=== PATIENT | female | born 1945 | race Caucasian/White ===

== ENCOUNTER 2016-05-08 14:04 | Emergency (ER) | payer MEDICARE ==
[~2016-05-08] VITALS: Ht 167.6 cm; Wt 76.0 kg
[~2016-05-08 14:04] MED LIST: AMIT50TA13; ATOR20TA42; BUTAPOW6; LEVO88TA21; PROP60; TOPI25; TOPI50TA4
[2016-05-08 14:12] VITALS: BP 136/92; PULSE 96; RESP 16; TEMP 97.7; O2SAT 96
[2016-05-08] MEDS ORDERED: AMLO2.5T PO (14:27)
[2016-05-08] MEDS ORDERED: BUTA1CAP PO (14:27)
[2016-05-08] MEDS ORDERED: OMEP20TA PO (14:27)
[2016-05-08] MEDS ORDERED: NORT10CA PO (14:27)
[2016-05-08] MEDS ORDERED: LEVO125T4 PO (14:27)
[2016-05-08] MEDS ORDERED: VALA500T PO (14:27)
--- NOTE | 2016-05-08 15:07 | PD ---
HPI Chief Complaint: Musculoskeletal Complaint Time Seen by Provider: 14:41 Travel History International Travel<30 days: No Contact w/Intl Traveler<30days: No Traveled to known affect area: No History of Present Illness HPI 71-year-old female presents to the emergency room for evaluation of right lower extremity swelling that started last night. Patient denies any trauma or injury to the area. States she elevated it and iced it last night and swelling seemed to improve slightly but today while playing a card game with her friends , the swelling returned. Her friends recommended she go to the emergency room for evaluation. She denies any significant pain other than chronic right knee pain that is no worse than normal. She has not taken anything for her symptoms. Denies redness. Patient denies history of DVT or PE, history of cancer, recent immobilization, recent surgery, or exogenous estrogen use. Denies chest pain or shortness of breath. No history of CHF. PFSH Past Medical History Heart Rhythm Problems: No Cardiac Catheterization: No Cardiovascular Problems: No High Cholesterol: No Congestive Heart Failure: No Cerebrovascular Accident: Yes (CEREBRAL HEMMORHAGE 1996/CRANIECTOMY) Diabetes: No Diminished Hearing: No Hypertension: No Neurologic: Yes (SEVERE HEADACHES 3X WEEK) Myocardial Infarction: No Seizures: Yes (, ) Thyroid Disease: Yes Tetanus Vaccination: > 5 Years Influenza Vaccination: Yes ?: Not Past Surgical History Cholecystectomy: Yes Coronary Artery Bypass Graft: No Hysterectomy: Yes Tonsillectomy: Yes Social History Alcohol Use: Yes (4 martini per week) Tobacco Use: No Substance Use: No Allergies-Medications (Allergen,Severity, Reaction): Coded Allergies: No Known Allergies (Verified , 05/08/16) Reported Meds & Prescriptions Reported Meds & Active Scripts Active Reported Valacyclovir (Valacyclovir HCl) 500 Mg Tab 500 Mg PO DAILY Omeprazole 20 Mg Tab 20 Mg PO DAILY Fioricet (Dtpxcybvro-Rwvzweqaksaib-Yimdlefg) 50-300-40 Mg Cap 1 Cap PO Q4H PRN Amlodipine (Amlodipine Besylate) 2.5 Mg Tab 2.5 Mg PO DAILY Levothyroxine (Levothyroxine Sodium) 125 Mcg Tab 125 Mcg PO DAILY Nortriptyline (Nortriptyline HCl) 10 Mg Cap 5 Mg PO HS Review of Systems Except as stated in HPI: all other systems reviewed are Neg Physical Exam Narrative GENERAL: Well-nourished, well-developed female in no acute distress. Afebrile. SKIN: Warm and dry. No erythema or ecchymosis. HEAD: Normocephalic. EYES: No scleral icterus. No injection or drainage. NECK: Supple, trachea midline. No JVD or lymphadenopathy. EXTREMITY: Negative Lizzeth's sign. Right calf nontender to palpation. No tenderness to palpation of the right lower extremity except at the anterior and posterior knee. Full range of motion of the right lower extremity. 2+ dorsalis pedis pulse. Less than 2 second capillary refill distally. Data Data Last Documented VS Vital Signs Date Time Temp Pulse Resp B/P Pulse Ox O2 Delivery O2 Flow Rate FiO2 05/08/16 14:12 97.7 96 16 136/92 96 Orders Us Leg Venous Doppler (05/08/16 ) MDM Medical Decision Making Medical Screen Exam Complete: Yes Emergency Medical Condition: Yes Medical Record Reviewed: Yes Differential Diagnosis DVT versus CHF versus sprain Narrative Course 71-year-old female presents to the emergency room for evaluation of lower extremity edema that started yesterday without trauma or injury. Denies history of kidney, heart, or liver failure. Denies risk factors for DVT. Denies pain. Physical exam reveals obvious right lower extremity nonpitting edema with 2+ dorsalis pedis pulse. Full range of motion in all joints. No tenderness to palpation. No calf tenderness. Negative Lizzeth's test. No erythema or ecchymosis. Ultrasound is negative for DVT, reveals popliteal cyst. Patient has no palpable obstructing masses and denies abdominal pain or difficulty with bowel or bladder function. She was told to follow up with primary care physician or return for worsening symptoms, especially if edema becomes bilateral. She has an appointment with her orthopedist in 5 days. Encouraged to elevate and apply ice to affected area. She understands and agrees with plan. Diagnosis Primary Impression: Edema of right lower extremity Referrals: Orthopedist Primary Care Physician Patient Instructions: General Instructions, Leg Edema (ED) Additional Instructions: Elevate and apply ice to the affected area for 20 minutes at a time, as needed for swelling. Follow-up with a primary care physician. Return to the emergency room for worsening symptoms. Disposition: 01 DISCHARGE HOME Condition: Stable Lizabeth Bennett May 08, 2016 15:07
--- NOTE | 2016-05-08 16:26 | RADHPO ---
EXAM DATE/TIME: 05/08/2016 15:54 [facility] COMPARISON: No previous studies available for comparison. INDICATIONS : Right leg edema. MEDICAL HISTORY : CVA. Thyroid disease. Seizures. Cerebral hemorrhage. SURGICAL HISTORY : Tonsillectomy. Cholecystectomy. Hysterectomy. Craniectomy. ENCOUNTER: Initial ACUITY: 1 day PAIN SCORE: 5/10 LOCATION: Right leg. TECHNIQUE: Venous ultrasound of the leg was performed from the inguinal ligament to the proximal calf. Real-martha e, color Doppler and spectral tracing, compression and augmentation techniques were used. FINDINGS: There is normal compressibility of the deep venous system from the inguinal region to the proximal ca lf. No echogenic clot is seen in the lumen of the common femoral, femoral, popliteal, and posterior tibial veins. There is a normal response of the venous system to proximal and distal augmentation an d respiration. There is a small oval smooth margin cystic area in the popliteal fossa which measures 1.7 x 0.7 x 1.4 cm without internal or peripheral flow. CONCLUSION: 1. The study is negative for deep venous thrombosis right lower extremity. 2. Small popliteal cyst. Shon Hammond MD on May 08, 2016 at 16:24 Board Certified Radiologist. This report was verified electronically.
== END 2016-05-08 16:48 | disposition home or self-care (01) ==
LOC: PHEFT 14:04
DX: R60.9 Edema, unspecified (principal); M25.561 Pain in right knee; G89.29 Other chronic pain
CPT/HCPCS: 93971

== ENCOUNTER 2016-06-26 10:42 | Emergency (ER) | payer MEDICARE ==
[~2016-06-26] VITALS: Ht 182.9 cm; Wt 73.0 kg
[~2016-06-26 10:42] MED LIST changes: -AMIT50TA13; +AMLO2.5T PO; -ATOR20TA42; +BUTA1CAP PO; -BUTAPOW6; +LEVO125T4 PO; -LEVO88TA21; +NORT10CA PO; +OMEP20TA PO; -PROP60; -TOPI25; -TOPI50TA4; +VALA500T PO
[2016-06-26 10:47] VITALS: BP 143/67; PULSE 81; RESP 18
[2016-06-26] MEDS ORDERED: SODIUM CHLORIDE 0.9% FLUSH 5 ML FLUSH IVF PRN (11:00)
[2016-06-26] MEDS ORDERED: methylPREDNISolone SOD SUCC 125 MG/2 ML VIAL IVP ONE (11:00)
[2016-06-26] MEDS ORDERED: AZITHROMYCIN 250 MG TAB PO ONE (11:00)
--- NOTE | 2016-06-26 11:13 | RADRPT ---
EXAM DATE/TIME: 06/26/2016 11:09 [facility] COMPARISON: No previous studies available for comparison. INDICATIONS : Cough, shortness of breath and fainting. MEDICAL HISTORY : Chronic obstructive pulmonary disease. SURGICAL HISTORY : None. ENCOUNTER: Initial ACUITY: 2 days PAIN SCORE: 0/10 LOCATION: Bilateral chest FINDINGS: A single view of the chest demonstrates the lungs to be symmetrically aerated without evidence of mas s, infiltrate or effusion. The cardiomediastinal contours are unremarkable. Osseous structures are intact. CONCLUSION: Normal examination for a patient of this age. Miguel Ángel Champion MD on June 26, 2016 at 11:11 Board Certified Radiologist. This report was verified electronically.
[2016-06-26] MEDS ORDERED: MELO-1 PO (11:14)
[2016-06-26] MEDS ORDERED: MULTTAB67 PO (11:14)
[2016-06-26] MEDS ORDERED: NORT10SO PO (11:14)
[2016-06-26 11:23] LABS: AUTOMATED NEUTROPHIL # 2.2 TH/MM3 (1.8-7.7); BASOPHIL % 0.5 % (0.0-2.0); EOSINOPHIL # 0.1 TH/MM3 (0-0.4); EOSINOPHIL % 1.8 % (0.0-4.0); HEMATOCRIT 37.2 % (35.0-46.0); HEMO FLAGS DIFF FINAL; LYMPH % 16.1 % (9.0-44.0); LYMPHOCYTE # 0.5 TH/MM3 (1.0-4.8); MEAN CELL VOLUME 97.2 FL (80.0-100.0); MEAN CORPUSCULAR HEMOGLOBIN 32.8 PG (27.0-34.0); MEAN CORPUSCULAR HGB CONC 33.7 % (32.0-36.0); MONO % 8.7 % (0.0-8.0); NEUT % 72.9 % (16.0-70.0); PLATELET COUNT 134 TH/MM3 (150-450); RED BLOOD COUNT 3.82 MIL/MM3 (4.00-5.30); RED CELL DISTRIBUTION WIDTH 14.7 % (11.6-17.2); WHITE BLOOD COUNT 3.1 TH/MM3 (4.0-11.0)
--- NOTE | 2016-06-26 11:23 | PD ---
HPI Chief Complaint: General Weakness Time Seen by Provider: 10:49 Travel History International Travel<30 days: No Contact w/Intl Traveler<30days: No Traveled to known affect area: No History of Present Illness HPI This 71-year-old woman presents to the emergency department sent from an urgent care after syncopal episode. She's been having intermittent bronchitis episodes since March. She has a remote history of tobacco use but quit many years ago. She's been having cough cold symptoms for the past 2-3 days. Cough is productive of thick phlegm. No shortness of breath, no fevers or chills, no headache, no chest pain. She went to urgent care today because of a cough. All there, after coming to the back, she was sitting on the table and she apparently passed out. She is unable to provide any real further details. States she was laying down when it happened. She also states it happened after she walked from the front to the back. She otherwise had been feeling generally well and healthy before the symptoms started to 3 days ago. She feels back to normal now. No other complaints. History Past Medical History Narrative Medical Hypertension Headache Hypothyroidism History of ICH in the past, a couple seizures related to this, and not on medicine now Recurrent bronchitis, has been told in the past she has COPD Menopausal: Yes Social History Alcohol Use: Yes (4 martini per week) Tobacco Use: No Allergies-Medications (Allergen,Severity, Reaction): Coded Allergies: No Known Allergies (Verified , 05/08/16) Reported Meds & Prescriptions Reported Meds & Active Scripts Active Reported Meloxicam 15 Mg Tab 15 Mg PO DAILY Multiple Vitamin 1 Tab 1 Tab PO DAILY Nortriptyline Liq (Nortriptyline HCl) 10 mg/5 ml Soln 5 Mg PO HS Valacyclovir (Valacyclovir HCl) 500 Mg Tab 500 Mg PO DAILY Omeprazole 20 Mg Tab 20 Mg PO DAILY PRN Fioricet (Xjkexhpdlv-Hbclrjrhvqusx-Otruesrk) 50-300-40 Mg Cap 1 Cap PO Q4H PRN Amlodipine (Amlodipine Besylate) 2.5 Mg Tab 2.5 Mg PO DAILY Levothyroxine (Levothyroxine Sodium) 125 Mcg Tab 125 Mcg PO DAILY Review of Systems Except as stated in HPI: all other systems reviewed are Neg Physical Exam Narrative GENERAL: Well-appearing 71-year-old woman, no acute distress. SKIN: Warm and dry. HEAD: Atraumatic. Normocephalic. EYES: Pupils equal and round. No scleral icterus. No injection or drainage. ENT: No nasal bleeding or discharge. Mucous membranes pink and moist. NECK: Trachea midline. No JVD. CARDIOVASCULAR: Regular rate and rhythm. No murmur appreciated. RESPIRATORY: Coarse wheezing in the posterior lung johns. Frequent cough. Good air movement. No respiratory distress. GASTROINTESTINAL: Abdomen soft, non-tender, nondistended. Hepatic and splenic margins not palpable. MUSCULOSKELETAL: No obvious deformities. No clubbing. No cyanosis. No edema. NEUROLOGICAL: Awake and alert. No obvious cranial nerve deficits. Motor grossly within normal limits. Normal speech. PSYCHIATRIC: Appropriate mood and affect; insight and judgment normal. Data Data Last Documented VS Vital Signs Date Time Temp Pulse Resp B/P Pulse Ox O2 Delivery O2 Flow Rate FiO2 06/26/16 10:52 81 18 97 Room Air 06/26/16 10:47 143/67 Orders Electrocardiogram (06/26/16 ) Complete Blood Count With Diff (06/26/16 10:59) Comprehensive Metabolic Panel (06/26/16 10:59) B-Type Natriuretic Peptide (06/26/16 10:59) Troponin I (06/26/16 10:59) Influenzae A/B Antigen (06/26/16 10:59) Iv Access Insert/Monitor (06/26/16 10:59) Ecg Monitoring (06/26/16 10:59) Oximetry (06/26/16 10:59) Oxygen Administration (06/26/16 10:59) Chest, Single Ap (06/26/16 10:59) Sodium Chloride 0.9% Flush (Ns Flush) (06/26/16 11:00) Methylprednisolone So Succ Inj (Solumedr (06/26/16 11:00) Albuterol-Ipratropium Neb (Duoneb Neb) (06/26/16 11:00) Azithromycin (Zithromax) (06/26/16 11:00) Labs Laboratory Tests Test 06/26/16 11:06 White Blood Count 3.1 TH/MM3 Red Blood Count 3.82 MIL/MM3 Hemoglobin 12.5 GM/DL Hematocrit 37.2 % Mean Corpuscular Volume 97.2 FL Mean Corpuscular Hemoglobin 32.8 PG Mean Corpuscular Hemoglobin 33.7 % Concent Red Cell Distribution Width 14.7 % Platelet Count 134 TH/MM3 Mean Platelet Volume 8.6 FL Neutrophils (%) (Auto) 72.9 % Lymphocytes (%) (Auto) 16.1 % Monocytes (%) (Auto) 8.7 % Eosinophils (%) (Auto) 1.8 % Basophils (%) (Auto) 0.5 % Neutrophils # (Auto) 2.2 TH/MM3 Lymphocytes # (Auto) 0.5 TH/MM3 Monocytes # (Auto) 0.3 TH/MM3 Eosinophils # (Auto) 0.1 TH/MM3 Basophils # (Auto) 0.0 TH/MM3 CBC Comment DIFF FINAL Differential Comment Sodium Level 140 MEQ/L Potassium Level 3.5 MEQ/L Chloride Level 108 MEQ/L Carbon Dioxide Level 26.1 MEQ/L Anion Gap 6 MEQ/L Blood Urea Nitrogen 13 MG/DL Creatinine 0.86 MG/DL Estimat Glomerular Filtration 65 ML/MIN Rate Random Glucose 115 MG/DL Calcium Level 7.5 MG/DL Total Bilirubin 0.3 MG/DL Aspartate Amino Transf 24 U/L (AST/SGOT) Alanine Aminotransferase 24 U/L (ALT/SGPT) Alkaline Phosphatase 62 U/L Troponin I LESS THAN 0.02 NG/ML B-Type Natriuretic Peptide 49 PG/ML Total Protein 5.8 GM/DL Albumin 2.9 GM/DL MDM Medical Decision Making Medical Screen Exam Complete: Yes Emergency Medical Condition: Yes Interpretation(s) Review of EKG: Normal sinus rhythm at a rate of 78, left bundle branch block, no definite evidence of acute ischemia. LABS: CBC unremarkable. CMP unremarkable. Troponin negative. BNP normal Chest x-ray negative. Differential Diagnosis Bronchitis, pneumonia, COPD, other Narrative Course Medical decision making 71-year-old woman who presents to the emergency department with appears to be COPD symptoms and bronchitis. She's had recurrent trouble with this. She has obvious wheezing on exam now. We'll treat her for COPD exacerbation and bronchitis. Just less than usual syncopal episode at the office. I'm not sure if this is related to some exertional dyspnea or exhaustion. I don't see any evidence of arrhythmia. We'll check labs and EKG, likely discharge. Diagnosis Primary Impression: Bronchitis Additional Impression: COPD (chronic obstructive pulmonary disease) with acute bronchitis Additional Instructions: Take albuterol 4 times daily. Take prednisone as prescribed. Take azithromycin as prescribed. Use Mucinex DM as needed for cough. Follow up with a primary physician in the next 3-5 days for repeat evaluation. Return to the emergency department for any worsening chest pain, trouble breathing, or any other new or worsening symptoms. Med/Other Pt SpecificInfo: Prescription(s) given Scripts Dextromethorphan-Guaifenesin ER 12 HR (Mucinex DM Maximum Strength)60-1,200 Mg Tab1 Tab PO BID PRN (CHEST CONGESTION AND/OR COUGH) #14 TAB Prov:Mani Richards MD 06/26/16 Prednisone (Deltasone)20 Mg Tab40 Mg PO DAILY 10 Days Prov:Mani Richards MD 06/26/16 Azithromycin 250 Mg Hua472 Mg PO DAILY 4 Days Prov:Mani Richards MD 06/26/16 Albuterol 18 GM Inh (Ventolin Hfa 18 GM Inh)90 Mcg/Act Aer2 Puff INH Q4-6H PRN ( SHORTNESS OF BREATH) #1 INHALER Prov:Mani Richards MD 06/26/16 Disposition: 01 DISCHARGE HOME Condition: Stable Mani Richards MD Jun 26, 2016 11:23
[2016-06-26] MEDS: RESP: ALBUTEROL 2.5 MG/IPRATROPIUM 0.5 MG NEB (SCH) INH ×2 (11:40→11:41)
[2016-06-26 12:35] LABS: ALKALINE PHOSPHATASE 62 U/L (45-117); ALT (GPT) 24 U/L (10-53); ANION GAP 6 MEQ/L (5-15); AST (GOT) 24 U/L (15-37); BICARBONATE 26.1 MEQ/L (21.0-32.0); BLOOD UREA NITROGEN 13 MG/DL (7-18); CHLORIDE 108 MEQ/L (98-107); GLOMERULAR FILTRATION RATE 65 ML/MIN (>89); POTASSIUM 3.5 MEQ/L (3.5-5.1); SODIUM (NA) 140 MEQ/L (136-145); TOTAL BILIRUBIN ADULT 0.3 MG/DL (0.2-1.0)
[2016-06-26] MEDS ORDERED: PRED-503 PO (12:46)
[2016-06-26] MEDS ORDERED: VENTAER INH (12:46)
[2016-06-26] MEDS ORDERED: AZIT250T3 PO (12:46)
[2016-06-26] MEDS ORDERED: DEXT1TAB18 PO (12:46)
[2016-06-26] MEDS ORDERED: CODE1SUS PO (12:57)
[2016-06-26] MEDS ORDERED: GUAISYP4 PO (12:58)
--- NOTE | 2016-06-26 13:52 | EKG ---
Date Performed: 06/26/2016 Time Performed: 09:51:30 PTAGE: 71 years EKG: Sinus rhythm LEFT BUNDLE BRANCH BLOCK ABNORMAL ECG Compared to prior electrocardiogram,Left bundle branch block i s present. PREVIOUS TRACING : 08/28/2006 20.18 DOCTOR: Hussein Verma Interpretating Date/Time 06/26/2016 13:52:00
== END 2016-06-26 13:37 | disposition home or self-care (01) ==
LOC: NEPA 10:42
DX: J20.9 Acute bronchitis, unspecified (principal); J44.0 Chronic obstructive pulmonary disease with (acute) lower respiratory infection; R06.02 Shortness of breath; I10 Essential (primary) hypertension; E03.9 Hypothyroidism, unspecified; I44.7 Left bundle-branch block, unspecified; R94.31 Abnormal electrocardiogram [ECG] [EKG]
CPT/HCPCS: 71010; 80053; 83880; 84484; 85025; 87804; 93005; 94640; 94664; 96374; 99284; J2930

== ENCOUNTER → 2016-09-17 | Day surgery (SDC) | payer MEDICARE ==
[~2016-09-17] MED LIST changes: +AZIT250T3 PO; +BUPIVACAINE/EPINEPHRINE 0.5% PF 30 ML VIAL ONE; +DEXT1TAB18 PO; +GUAISYP4 PO; +KETOROLAC TROMETHAMINE 30 MG/ML (IVP) VIAL IV PUSH ONE; +LACTATED RINGER'S 1000 ML INJ 1,000 ML ONE; +MELO-1 PO; +MIDAZOLAM HCL 2 MG/2 ML VIAL ONE; +MULTTAB67 PO; -NORT10CA PO; +NORT10SO PO; +ONDANSETRON HCL 4 MG/2 ML VIAL IV PUSH ONE; +PRED-503 PO; +PROPOFOL 100 MG/10 ML INJ IV ONE; +VENTAER INH; +ceFAZolin INJ 1,000 MG VIAL ONE
--- NOTE | 2016-09-17 16:10 | TN ---
cc: ESTHER MACKAY DATE OF SURGERY 09/17/16 PREOPERATIVE DIAGNOSIS Internal derangement of the right knee. POSTOPERATIVE DIAGNOSIS 1. Complex bucket handle tear, posterior medial meniscus. 2. Osteoarthritis, right knee. PROCEDURE 1. Arthroscopy of the right knee. 2. Arthroscopic medial meniscectomy. 3. Minor abrasion chondroplasty. SURGEON Esther Mackay ANESTHESIA General. ESTIMATED BLOOD LOSS Minimal. INDICATION This is a 71-year-old female with catching, locking and mechanical the medial aspect of her right knee. Studies do show some element of arthritis but MRI scan shows evidence of a complex degenerative medial meniscus tear. She presents for surgical treatment. PROCEDURE IN DETAIL The patient brought to the operating room, anesthetized in supine position. The right leg was scrubbed with alcohol, followed by Hibiclens, followed Chloraprep and draped sterilely. Antibiotics were given within a one hour time window and a time-out was done. Inflow was established anterior and laterally. The suprapatellar pouch was unremarkable. Grade 1 changes of the posterior patellar surface were noted. There were no loose bodies. The medial compartment showed kissing grade 4 changes of the medial tibial plateau and medial femoral condyle. There was a detached bucket handle tear that had flipped back toward the notch. The anterior portion of the meniscus was normal. The ACL had a normal foot print. The lateral compartment showed grade 1 and 2 change of the tibia and femur and a small posterior degenerative tear which did not appear to be unstable. A spinal needle was introduced along the medial joint line. Straight and angled punches were used to take the medial meniscus back to stable rim. The meniscus was debrided from approximately the 4 o'clock position to the posterior horn. A minor abrasion chondroplasty was performed. The wound was irrigated copiously. The fragments floated free from the joint. The wound was anesthetized, closed with Steri-Strips and Benzoin. Local anesthesia was utilized. A sterile dressing was applied. The patient awakened and taken to recovery in satisfactory condition. MD BG Rubio/LOLITA /3:42 PM /3:57 PM
== END | disposition home or self-care (01) ==
LOC: ESDC 13:34
PROVIDERS: ATTEND Orthopaedic Surgery Orthopaedic Surgery of the Spine
DX: S83.211A Bucket-handle tear of medial meniscus, current injury, right knee, initial encounter (principal); M17.11 Unilateral primary osteoarthritis, right knee
CPT/HCPCS: 01400; 29881; J0690; J1885; J2250; J2405; J3010; J7120

== ENCOUNTER 2016-10-17 17:11 | Emergency (ER) | payer MEDICARE ==
[~2016-10-17] VITALS: Ht 167.6 cm; Wt 75.0 kg
[~2016-10-17 17:11] MED LIST changes: -BUPIVACAINE/EPINEPHRINE 0.5% PF 30 ML VIAL ONE; -KETOROLAC TROMETHAMINE 30 MG/ML (IVP) VIAL IV PUSH ONE; -LACTATED RINGER'S 1000 ML INJ 1,000 ML ONE; -MIDAZOLAM HCL 2 MG/2 ML VIAL ONE; -ONDANSETRON HCL 4 MG/2 ML VIAL IV PUSH ONE; -PROPOFOL 100 MG/10 ML INJ IV ONE; -ceFAZolin INJ 1,000 MG VIAL ONE
[2016-10-17 17:14] VITALS: BP 162/89; PULSE 81; RESP 17; TEMP 97.8; O2SAT 96
--- NOTE | 2016-10-17 17:29 | PD ---
HPI . left foot splinter Chief Complaint: Foreign Body Time Seen by Provider: 17:20 Travel History International Travel<30 days: No Contact w/Intl Traveler<30days: No Traveled to known affect area: No History of Present Illness HPI 71 yr old female here with c/o splinter to her left foot bottom. It just happened not too long ago. She is up to date on tetanus. It hurts to walk. No other issues. PFSH Past Medical History Heart Rhythm Problems: No Cardiac Catheterization: No Cardiovascular Problems: Yes (CHOLESTEROL, HTN) High Cholesterol: No Congestive Heart Failure: No Cerebrovascular Accident: Yes Diminished Hearing: No GERD: Yes Hypertension: Yes Neurologic: Yes (SEVERE HEADACHES 3X WEEK) Myocardial Infarction: No Seizures: Yes (, ) Thyroid Disease: Yes Tetanus Vaccination: < 5 Years Influenza Vaccination: Yes Menopausal: Yes Past Surgical History Cholecystectomy: Yes Coronary Artery Bypass Graft: No Hysterectomy: Yes Tonsillectomy: Yes Social History Alcohol Use: Yes (4 martini per week) Tobacco Use: No Substance Use: No Allergies-Medications (Allergen,Severity, Reaction): Coded Allergies: HMG-CoA Reductase Inhibitors (Verified Allergy, Intermediate, ITCHING, 10/17) Reported Meds & Prescriptions Reported Meds & Active Scripts Active Reported Meloxicam 15 Mg Tab 15 Mg PO DAILY Multiple Vitamin 1 Tab 1 Tab PO DAILY Nortriptyline Liq (Nortriptyline HCl) 10 mg/5 ml Soln 5 Mg PO HS Valacyclovir (Valacyclovir HCl) 500 Mg Tab 500 Mg PO DAILY Omeprazole 20 Mg Tab 20 Mg PO DAILY PRN Fioricet (Ivlujxxrlv-Zhsnaqdpciuia-Fiugrtiw) 50-300-40 Mg Cap 1 Cap PO Q4H PRN Amlodipine (Amlodipine Besylate) 2.5 Mg Tab 2.5 Mg PO DAILY Levothyroxine (Levothyroxine Sodium) 125 Mcg Tab 125 Mcg PO DAILY Review of Systems General / Constitutional: No: Fever Eyes: No: Visual changes HENT: No: Headaches Cardiovascular: No: Chest Pain or Discomfort Respiratory: No: Shortness of Breath Gastrointestinal: No: Abdominal Pain Genitourinary: No: Dysuria Musculoskeletal: No: Pain Skin: Positive Other (splinter left foot ), No Rash Neurologic: No: Weakness Psychiatric: No: Depression Endocrine: No: Polydipsia Hematologic/Lymphatic: No: Easy Bruising Physical Exam Narrative GENERAL: AAO x 3, no acute distress, Well-nourished, well-developed patient. SKIN: Warm and dry. No visible rashes or bruising. 0.8 cm wood chip just below plantar surface of left lateral foot HEAD: Normocephalic and atraumatic. EYES: No scleral icterus. No injection or drainage. ENT: No nasal drainage noted. Mucous membranes pink. Airway patent. NECK: Supple, trachea midline. No JVD. CARDIOVASCULAR: Regular rate and rhythm without murmurs, gallops, or rubs. RESPIRATORY: Breath sounds equal bilaterally. No accessory muscle use. No rhonchi or rales. GASTROINTESTINAL: visual inspection normal EXTREMITIES: No cyanosis or edema. BACK: No obvious deformity. NEURO: grossly intact PSYCH: AAO x 3, normal affect. Data Data Last Documented VS Vital Signs Date Time Temp Pulse Resp B/P Pulse Ox O2 Delivery O2 Flow Rate FiO2 10/17/16 17:14 97.8 81 17 162/89 96 MDM Medical Decision Making Medical Screen Exam Complete: Yes Emergency Medical Condition: Yes Medical Record Reviewed: Yes Differential Diagnosis splinter left foot bottom, less likely laceration, less likely fracture Narrative Course 71 yr old female here with splinter to her left foot plantar surface. Patient gave consent for removal. Splinter was removed. Patient tolerated without incident. She thanked me for her care. Procedures Procedure Narrative splinter removal area cleaned and large bore 18 gauge needle used to shear away very superficial surface of foot (plantar) forceps used to remove splinter: patient experienced no pain splinter was very superficial area cleaned and bandage applied Diagnosis Primary Impression: Splinter of foot without infection Qualified Code: S90.852A - Splinter of foot without infection, left, initial encounter Patient Instructions: General Instructions Additional Instructions: Effie for worsening signs of infection which include fever, increased redness , increased warmth, purulent drainage, increased swelling or streaking. If any of these develop, please go to the nearest emergency room. Keep area clean with soap and water daily. Please return to emergency department if your symptoms return or worsen. Med/Other Pt SpecificInfo: No Change to Meds Disposition: 01 DISCHARGE HOME Condition: Stable Yary Dockery Oct 17, 2016 17:29
== END 2016-10-17 17:44 | disposition home or self-care (01) ==
LOC: PHEFT 17:11
DX: S90.852A Superficial foreign body, left foot, initial encounter (principal); I10 Essential (primary) hypertension; E07.9 Disorder of thyroid, unspecified; Z86.79 Personal history of other diseases of the circulatory system; Z87.19 Personal history of other diseases of the digestive system; Z86.69 Personal history of other diseases of the nervous system and sense organs; W45.8XXA Other foreign body or object entering through skin, initial encounter
CPT/HCPCS: 28190

== ENCOUNTER 2016-12-14 12:52 | Observation (INO) | payer MEDICARE ==
[~2016-12-14 12:52] MED LIST changes: -AZIT250T3 PO; -DEXT1TAB18 PO; -GUAISYP4 PO; -PRED-503 PO; -VENTAER INH
[2016-12-14 13:00] VITALS: BP 136/79; PULSE 78; RESP 18; O2SAT 97
[2016-12-14] MEDS ORDERED: SODIUM CHLORIDE 0.9% FLUSH 10 ML FLUSH IVF PRN (13:30)
[2016-12-14] MEDS ORDERED: CELE1CAP8 PO (13:33)
[2016-12-14] MEDS ORDERED: MECL-62 PO (13:33)
[2016-12-14 13:38] LABS: AUTOMATED NEUTROPHIL # 3.8 TH/MM3 (1.8-7.7); BASOPHIL % 0.5 % (0.0-2.0); EOSINOPHIL # 0.1 TH/MM3 (0-0.4); EOSINOPHIL % 1.4 % (0.0-4.0); HEMATOCRIT 45.2 % (35.0-46.0); HEMO FLAGS DIFF FINAL; LYMPH % 28.6 % (9.0-44.0); LYMPHOCYTE # 1.7 TH/MM3 (1.0-4.8); MEAN CELL VOLUME 94.1 FL (80.0-100.0); MEAN CORPUSCULAR HEMOGLOBIN 30.5 PG (27.0-34.0); MEAN CORPUSCULAR HGB CONC 32.4 % (32.0-36.0); MONO % 6.9 % (0.0-8.0); NEUT % 62.6 % (16.0-70.0); PLATELET COUNT 250 TH/MM3 (150-450); RED BLOOD COUNT 4.81 MIL/MM3 (4.00-5.30); RED CELL DISTRIBUTION WIDTH 13.2 % (11.6-17.2)
[2016-12-14 13:48] LABS: CHLORIDE 103 MEQ/L (98-107); POTASSIUM 3.2 MEQ/L (3.5-5.1); SODIUM (NA) 139 MEQ/L (136-145)
[2016-12-14 13:51] LABS: ANION GAP 8 MEQ/L (5-15); BICARBONATE 27.9 MEQ/L (21.0-32.0); BLOOD UREA NITROGEN 16 MG/DL (7-18); MAGNESIUM 2.3 MG/DL (1.5-2.5)
[2016-12-14 13:52] LABS: APTT (PATIENT) 25.5 SEC (24.3-30.1); PROTHROMBIN TIME - PATIENT 10.7 SEC (9.8-11.6)
[2016-12-14 13:54] LABS: GLOMERULAR FILTRATION RATE 76 ML/MIN (>89)
--- NOTE | 2016-12-14 14:06 | RADRPT ---
EXAM DATE/TIME: 12/14/2016 13:50 [facility] COMPARISON: CHEST SINGLE AP, June 26, 2016, 11:09. INDICATIONS : Chest pain. MEDICAL HISTORY : None. SURGICAL HISTORY : None. ENCOUNTER: Initial ACUITY: 2 days PAIN SCORE: 6/10 LOCATION: Bilateral chest FINDINGS: A single view of the chest demonstrates the lungs to be symmetrically aerated without evidence of mas s, infiltrate or effusion. The cardiomediastinal contours are unremarkable. Tortuous thoracic aorta again noted. Osseous structures are intact. CONCLUSION: No evidence of acute cardiopulmonary disease. Stephen Grove MD on December 14, 2016 at 14:04 Board Certified Radiologist. This report was verified electronically.
[2016-12-14] MEDS ORDERED: POTASSIUM CHLORIDE 20 MEQ CONTROLLED RELEASE TAB PO ONE (14:15)
--- NOTE | 2016-12-14 14:46 | PD ---
HPI Chief Complaint: Chest Pain Time Seen by Provider: 13:04 Travel History International Travel<30 days: No Contact w/Intl Traveler<30days: No Traveled to known affect area: No History of Present Illness HPI 71yo F with PMH of HTN and hypothyroidism presents to the ED with c/o chest pain for 2 days. States she feels like someone is sitting on her chest and it is left and right sided and to the back. Denies any fever, cough, sob, n/v, abdominal pain, focal weakness or numbness. 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 Last stress test is about 9 months ago. 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 PFSH Past Medical History Arthritis: Yes Heart Rhythm Problems: No Cardiac Catheterization: No Cardiovascular Problems: Yes (CHOLESTEROL, HTN) High Cholesterol: No Congestive Heart Failure: No Cerebrovascular Accident: Yes Diabetes: No Diminished Hearing: No GERD: Yes Hypertension: Yes Neurologic: Yes (h/a s) Myocardial Infarction: No Seizures: Yes (, ) Thyroid Disease: Yes Tetanus Vaccination: Unknown Influenza Vaccination: Yes Menopausal: Yes Past Surgical History Cholecystectomy: Yes Coronary Artery Bypass Graft: No Hysterectomy: Yes Tonsillectomy: Yes Social History Alcohol Use: Yes (4 martini per week) Tobacco Use: No (quit 37 years ago) Substance Use: No Allergies-Medications (Allergen,Severity, Reaction): Coded Allergies: amlodipine (Unverified Allergy, Intermediate, ITCHING, 11/23/16) atorvastatin (Unverified Allergy, Intermediate, ITCHING, 11/23/16) pravastatin (Unverified Allergy, Intermediate, ITCHING, 11/23/16) simvastatin (Unverified Allergy, Intermediate, ITCHING, 11/23/16) Reported Meds & Prescriptions Reported Meds & Active Scripts Active Reported Celecoxib 200 Mg Cap 200 Mg PO DAILY Meclizine (Meclizine HCl) 25 Mg Tab 25 Mg PO DIRECTED PRN Meloxicam 15 Mg Tab 15 Mg PO DAILY Multiple Vitamin 1 Tab 1 Tab PO DAILY Nortriptyline Liq (Nortriptyline HCl) 10 mg/5 ml Soln 25 Mg PO HS Valacyclovir (Valacyclovir HCl) 500 Mg Tab 500 Mg PO DAILY Omeprazole 20 Mg Tab 20 Mg PO DAILY PRN Amlodipine (Amlodipine Besylate) 2.5 Mg Tab 2.5 Mg PO DAILY Levothyroxine (Levothyroxine Sodium) 125 Mcg Tab 137 Mcg PO DAILY Review of Systems Except as stated in HPI: all other systems reviewed are Neg Physical Exam Narrative GENERAL: 71yo F not in distress. SKIN: Focused skin assessment warm/dry. HEAD: Atraumatic. Normocephalic. EYES: Pupils equal and round. No scleral icterus. No injection or drainage. ENT: No nasal bleeding or discharge. Mucous membranes pink and moist. NECK: Trachea midline. No JVD. CARDIOVASCULAR: Regular rate and rhythm. No murmur appreciated. RESPIRATORY: No accessory muscle use. Clear to auscultation. Breath sounds equal bilaterally. GASTROINTESTINAL: Abdomen soft, non-tender, nondistended. MUSCULOSKELETAL: No obvious deformities. No clubbing. No cyanosis. No edema. NEUROLOGICAL: Awake and alert. No obvious cranial nerve deficits. Motor grossly within normal limits. Normal speech. PSYCHIATRIC: Appropriate mood and affect; insight and judgment normal. Data Data Last Documented VS Vital Signs Date Time Temp Pulse Resp B/P (MAP) Pulse Ox O2 Delivery O2 Flow Rate FiO2 12/14/16 13:35 97 Room Air 12/14/16 13:00 78 18 136/79 (98) Orders Orders Electrocardiogram (12/14/16 13:26) Basic Metabolic Panel (Bmp) (12/14/16 13:26) Complete Blood Count With Diff (12/14/16 13:26) Magnesium (Mg) (12/14/16 13:26) Prothrombin Time / Inr (Pt) (12/14/16 13:26) Act Partial Throm Time (Ptt) (12/14/16 13:26) Troponin I (12/14/16 13:26) Chest, Single Ap (12/14/16 13:26) Ecg Monitoring (12/14/16 13:26) Bilateral Bp Monitoring (12/14/16 13:26) Iv Access Insert/Monitor (12/14/16 13:26) Oximetry (12/14/16 13:26) Oxygen Administration (12/14/16 13:26) Sodium Chloride 0.9% Flush (Ns Flush) (12/14/16 13:30) Potassium Chloride (Kcl) (12/14/16 14:15) Labs Laboratory Tests Test 12/14/16 13:00 White Blood Count 6.0 TH/MM3 Red Blood Count 4.81 MIL/MM3 Hemoglobin 14.7 GM/DL Hematocrit 45.2 % Mean Corpuscular Volume 94.1 FL Mean Corpuscular Hemoglobin 30.5 PG Mean Corpuscular Hemoglobin Concent 32.4 % Red Cell Distribution Width 13.2 % Platelet Count 250 TH/MM3 Mean Platelet Volume 8.6 FL Neutrophils (%) (Auto) 62.6 % Lymphocytes (%) (Auto) 28.6 % Monocytes (%) (Auto) 6.9 % Eosinophils (%) (Auto) 1.4 % Basophils (%) (Auto) 0.5 % Neutrophils # (Auto) 3.8 TH/MM3 Lymphocytes # (Auto) 1.7 TH/MM3 Monocytes # (Auto) 0.4 TH/MM3 Eosinophils # (Auto) 0.1 TH/MM3 Basophils # (Auto) 0.0 TH/MM3 CBC Comment DIFF FINAL Differential Comment Prothrombin Time 10.7 SEC Prothromb Time International Ratio 1.0 RATIO Activated Partial Thromboplast Time 25.5 SEC Blood Urea Nitrogen 16 MG/DL Creatinine 0.75 MG/DL Random Glucose 107 MG/DL Calcium Level 9.5 MG/DL Magnesium Level 2.3 MG/DL Sodium Level 139 MEQ/L Potassium Level 3.2 MEQ/L Chloride Level 103 MEQ/L Carbon Dioxide Level 27.9 MEQ/L Anion Gap 8 MEQ/L Estimat Glomerular Filtration Rate 76 ML/MIN Troponin I LESS THAN 0.02 NG/ML MDM Medical Decision Making Medical Screen Exam Complete: Yes Emergency Medical Condition: Yes Interpretation(s) EKG: NSR 66bpm. LBBB. Unchanged from prior. Differential Diagnosis ACS vs. musculoskeletal pain Narrative Course 71yo F with HTN and hypothyroidism here with chest pain that feels like someone is sitting on it for 2 days. Pt states she has never had similar chest pain. Labs reviewed, no leukocytosis. Mild hypokalemia at 3.2, replaced. Troponin negative. CXR negative. Pt states that she cant take any medication due to her stem cell in her knee so refusing any aspirin or pain medication. Will admit pt for chest pain center for serial EKG and cardiac enzyme. Diagnosis Primary Impression: Chest pain Qualified Codes: R07.9 - Chest pain, unspecified Admitting Information Admitting Physician Requests: Hanna Lopez DO Dec 14, 2016 14:46
[2016-12-14] MEDS ORDERED: MAGNESIUM HYDROXIDE SUSP 30 ML CUP PO PRN (15:15)
[2016-12-14] MEDS ORDERED: NITROGLYCERIN 0.4 MG SL 25 TABS/BTL SL PRN (15:15)
[2016-12-14] MEDS ORDERED: SENNOSIDES 8.6 MG TAB PO PRN (15:15)
[2016-12-14] MEDS ORDERED: LACTULOSE SYRUP 20 GM/30 ML CUP PO PRN (15:15)
[2016-12-14] MEDS ORDERED: SODIUM CHLORIDE 0.9% FLUSH 10 ML FLUSH IV FLUSH PRN (15:15)
[2016-12-14] MEDS ORDERED: MORPHINE SULFATE 4 MG/ML INJ IV PRN ×2 (15:15)
[2016-12-14] MEDS ORDERED: ONDANSETRON HCL 4 MG/2 ML VIAL IVP PRN (15:15)
--- NOTE | 2016-12-14 16:26 | HHI.HP ---
[facility] Renate Lynch MD Admission Diagnosis Chest pain Diagnoses: Travel History International Travel<30 Days: No Contact w/Intl Traveler <30 Da: No Traveled to Known Affected Are: No History of Present Illness Mrs. Barnes is a 70-year-old female. She is present today in the ER secondary to chest pain which has been present for 2 days off and on. Mostly chest pain occurs at night. It to tight sensation to her bilateral upper chest. She also feels some pains with moving. She does not have positive tender points to suggest costochondritis. His pains were preceded by a transient sinusitis. She has smoked in the past up to 3-1/2 packs per day but quit approximately 35 years ago. No alcohol abuse. No drug abuse. Chronic hypertension and hypothyroidism are present at baseline. No complaints of nausea. Review of Systems Constitutional: DENIES: Fatigue, Fever, Chills, Change in appetite Endocrine: DENIES: Heat/cold intolerance Eyes: DENIES: Blurred vision, Diplopia, Eye pain Ears, nose, mouth, throat: DENIES: Tinnitus, Hearing loss, Vertigo Respiratory: DENIES: Cough, Wheezing, Sputum production Cardiovascular: COMPLAINS OF: Chest pain, DENIES: Palpitations, Syncope Gastrointestinal: DENIES: Abdominal pain, Black stools, Bloody stools Genitourinary: DENIES: Abnormal vaginal bleeding, Dysmenorrhea Musculoskeletal: DENIES: Joint pain, Muscle aches, Stiffness Integumentary: DENIES: Abnormal pigmentation Hematologic/lymphatic: DENIES: Bruising Immunologic/allergic: DENIES: Eczema Neurologic: DENIES: Abnormal gait Psychiatric: DENIES: Anxiety, Confusion, Hallucinations Past Family Social History Past Medical History Hypertension Hypothyroidism History of spontaneous intracranial hemorrhage (1996) History of 2 seizures (1998) Past Surgical History Tonsillectomy Appendectomy Hysterectomy Cholecystectomy Craniotomy in 1996 secondary to spontaneous intracranial hemorrhage Reported Medications Reported Meds & Active Scripts Active Reported Meclizine (Meclizine HCl) 25 Mg Tab 25 Mg PO DIRECTED PRN Multiple Vitamin 1 Tab 1 Tab PO DAILY Nortriptyline Liq (Nortriptyline HCl) 10 mg/5 ml Soln 25 Mg PO HS Valacyclovir (Valacyclovir HCl) 500 Mg Tab 500 Mg PO DAILY Omeprazole 20 Mg Tab 20 Mg PO DAILY PRN Amlodipine (Amlodipine Besylate) 2.5 Mg Tab 2.5 Mg PO DAILY Levothyroxine (Levothyroxine Sodium) 125 Mcg Tab 137 Mcg PO DAILY Allergies: Coded Allergies: amlodipine (Unverified Allergy, Intermediate, ITCHING, 11/23/16) atorvastatin (Unverified Allergy, Intermediate, ITCHING, 11/23/16) pravastatin (Unverified Allergy, Intermediate, ITCHING, 11/23/16) simvastatin (Unverified Allergy, Intermediate, ITCHING, 11/23/16) Family History Arrhythmia and father No disease in mother ( at age 94) History of intracranial aneurysm in brother Social History Past history of smoking, patient quit at age 36 Occasional alcohol use No drug abuse Physical Exam Vital Signs Vital Signs Date Time Temp Pulse Resp B/P (MAP) Pulse Ox O2 Delivery O2 Flow Rate FiO2 12/14/16 13:35 97 Room Air 12/14/16 13:00 78 18 136/79 (98) 97 Physical Exam GENERAL: NAD, A&Ox3 HEAD: Normocephalic. NECK: Supple, trachea midline. No lymphadenopathy. EYES: No scleral icterus. No injection or drainage. CARDIOVASCULAR: Regular rate and rhythm without murmurs, gallops, or rubs. RESPIRATORY: Breath sounds equal bilaterally. No accessory muscle use. GASTROINTESTINAL: Abdomen soft, non-tender, nondistended. MUSCULOSKELETAL: No cyanosis, or edema. No point tenderness around sternum SKIN: Warm and dry. NEURO: No focal neurological deficitis. Laboratory Laboratory Tests Test 12/14/16 13:00 White Blood Count 6.0 Red Blood Count 4.81 Hemoglobin 14.7 Hematocrit 45.2 Mean Corpuscular Volume 94.1 Mean Corpuscular Hemoglobin 30.5 Mean Corpuscular Hemoglobin Concent 32.4 Red Cell Distribution Width 13.2 Platelet Count 250 Mean Platelet Volume 8.6 Neutrophils (%) (Auto) 62.6 Lymphocytes (%) (Auto) 28.6 Monocytes (%) (Auto) 6.9 Eosinophils (%) (Auto) 1.4 Basophils (%) (Auto) 0.5 Neutrophils # (Auto) 3.8 Lymphocytes # (Auto) 1.7 Monocytes # (Auto) 0.4 Eosinophils # (Auto) 0.1 Basophils # (Auto) 0.0 CBC Comment DIFF FINAL Differential Comment Prothrombin Time 10.7 Prothromb Time International Ratio 1.0 Activated Partial Thromboplast Time 25.5 Blood Urea Nitrogen 16 Creatinine 0.75 Random Glucose 107 Calcium Level 9.5 Magnesium Level 2.3 Sodium Level 139 Potassium Level 3.2 Chloride Level 103 Carbon Dioxide Level 27.9 Anion Gap 8 Estimat Glomerular Filtration Rate 76 Troponin I LESS THAN 0.02 Result Diagram: 12/14/16 1300 12/14/16 1300 Caprinaakash VTE Risk Assessment Caprini VTE Risk Assessment: No/Low Risk (score <= 1) Caprini Risk Assessment Model Point Value = 1 Point Value = 2 Point Value = 3 Point Value = 5 Age 41-60 Minor surgery BMI > 25 kg/m2 Swollen legs Varicose veins or History of unexplained or recurrent spontaneous Oral contraceptives or hormone replacement Sepsis (< 1 month) Serious lung disease, including pneumonia (< 1 month) Abnormal pulmonary function Acute myocardial infarction Congestive heart failure (< 1 month) History of inflammatory bowel disease Medical patient at bed rest Age 61-74 Arthroscopic surgery Major open surgery (> 45 min) Laparoscopic surgery (> 45 min) Malignancy Confined to bed (> 72 hours) Immobilizing plaster cast Central venous access Age >= 75 History of VTE Family history of VTE Factor V Leiden Prothrombin [id number] Lupus anticoagulant Anticardiolipin antibodies Elevated serum homocysteine Heparin-induced thrombocytopenia Other congenital or acquired thrombophilia Stroke (< 1 month) Elective arthroplasty Hip, pelvis, or leg fracture Acute spinal cord injury (< 1 month) Prophylaxis Regimen Total Risk Factor Score Risk Level Prophylaxis Regimen 0-1 Low Early ambulation 2 Moderate Order ONE of the following: *Sequential Compression Device (SCD) *Heparin 5000 units SQ BID 3-4 Higher Order ONE of the following medications: *Heparin 5000 units SQ TID *Enoxaparin/Lovenox 40 mg SQ daily (WT < 150 kg, CrCl > 30 mL/min) *Enoxaparin/Lovenox 30 mg SQ daily (WT < 150 kg, CrCl > 10-29 mL/min) *Enoxaparin/Lovenox 30 mg SQ BID (WT < 150 kg, CrCl > 30 mL/min) AND/OR *Sequential Compression Device (SCD) 5 or more Highest Order ONE of the following medications: *Heparin 5000 units SQ TID (Preferred with Epidurals) *Enoxaparin/Lovenox 40 mg SQ daily (WT < 150 kg, CrCl > 30 mL/min) *Enoxaparin/Lovenox 30 mg SQ daily (WT < 150 kg, CrCl > 10-29 mL/min) *Enoxaparin/Lovenox 30 mg SQ BID (WT < 150 kg, CrCl > 30 mL/min) AND *Sequential Compression Device (SCD) Assessment and Plan Problem List: (1) Chest pain ICD Code: R07.9 - Chest pain, unspecified Status: Acute Assessment and Plan Assessment and plan 71-year-old female admitted secondary to chest pain Chest pain Evaluate for ACS Follow cardiac enzymes No aspirin daily secondary to history of intracranial hemorrhage No other blood thinners secondary to intracranial hemorrhage When necessary oxygen When necessary morphine for pain. When necessary nitroglycerin Follow on telemetry Hypertension Continue baseline treatments Hypothyroidism Continue Synthroid Follows as an outpatient History of intracranial hemorrhage Avoid aspirin and other blood thinners DVT prophylaxis SCDs No blood thinners secondary to history of intracranial hemorrhage Problem Qualifiers (1) Chest pain: Qualified Codes: R07.9 - Chest pain, unspecified Bryce Valdovinos MD Dec 14, 2016 16:26
[2016-12-14] MEDS ORDERED: MECLIZINE HCL 25 MG TAB PO PRN (16:30)
[2016-12-14] MEDS ORDERED: ENOXAPARIN SODIUM 40 MG/0.4 ML SYRINGE SQ SCH (17:00)
[2016-12-14] MEDS ORDERED: PILL SPLITTER OTHER PRN (17:15)
[2016-12-14] MEDS ORDERED: PANTOPRAZOLE SOD 20 MG DELAYED RELEASE TAB PO PRN (17:15)
[2016-12-14 17:30] VITALS: BP 144/58; PULSE 78; RESP 16; O2SAT 98
[2016-12-14 20:00] VITALS: BP 172/91; PULSE 72; RESP 20; TEMP 98.3; O2SAT 96
[2016-12-14] MEDS: SODIUM CHLORIDE 0.9% FLUSH 10 ML FLUSH IV FLUSH SCH (20:05)
[2016-12-14] MEDS ORDERED: NORTRIPTYLINE HCL 25 MG CAP PO SCH (21:00)
[2016-12-14 22:14] LABS: CREATINE KINASE 66 U/L (26-192)
[2016-12-15 04:00] VITALS: BP 154/94; PULSE 64; RESP 20; TEMP 97.8; O2SAT 98
[2016-12-15 04:16] LABS: CREATINE KINASE 61 U/L (26-192)
[2016-12-15] MEDS ORDERED: LEVOTHYROXINE SODIUM 112 MCG TAB PO SCH (06:00)
[2016-12-15] MEDS ORDERED: LEVOTHYROXINE SODIUM 25 MCG TAB PO SCH (06:00)
[2016-12-15] MEDS: SODIUM CHLORIDE 0.9% FLUSH 10 ML FLUSH IV FLUSH SCH (08:44)
[2016-12-15 08:47] LABS: AUTOMATED NEUTROPHIL # 2.3 TH/MM3 (1.8-7.7); BASOPHIL % 0.9 % (0.0-2.0); EOSINOPHIL # 0.1 TH/MM3 (0-0.4); HEMATOCRIT 42.8 % (35.0-46.0); HEMO FLAGS DIFF FINAL; LYMPH % 32.3 % (9.0-44.0); LYMPHOCYTE # 1.3 TH/MM3 (1.0-4.8); MEAN CELL VOLUME 92.3 FL (80.0-100.0); MEAN CORPUSCULAR HEMOGLOBIN 30.9 PG (27.0-34.0); MEAN CORPUSCULAR HGB CONC 33.5 % (32.0-36.0); MONO % 7.2 % (0.0-8.0); NEUT % 57.6 % (16.0-70.0); PLATELET COUNT 228 TH/MM3 (150-450); RED BLOOD COUNT 4.64 MIL/MM3 (4.00-5.30); RED CELL DISTRIBUTION WIDTH 12.9 % (11.6-17.2)
[2016-12-15 08:55] LABS: CHLORIDE 106 MEQ/L (98-107); SODIUM (NA) 142 MEQ/L (136-145)
[2016-12-15 09:00] LABS: ANION GAP 10 MEQ/L (5-15); BICARBONATE 25.9 MEQ/L (21.0-32.0); BLOOD UREA NITROGEN 15 MG/DL (7-18)
[2016-12-15] MEDS ORDERED: amLODIPine BESYLATE 5 MG TAB PO SCH (09:00)
[2016-12-15] MEDS ORDERED: MULTIVITAMIN TAB PO SCH (09:00)
[2016-12-15] MEDS ORDERED: valACYclovir HCL 500 MG TAB PO SCH (09:00)
[2016-12-15 09:03] LABS: ALT (GPT) 18 U/L (10-53); AST (GOT) 16 U/L (15-37); GLOMERULAR FILTRATION RATE 91 ML/MIN (>89)
[2016-12-15 09:05] LABS: TOTAL BILIRUBIN ADULT 0.7 MG/DL (0.2-1.0)
[2016-12-15 09:06] LABS: ALKALINE PHOSPHATASE 82 U/L (45-117)
[2016-12-15 09:42] VITALS: BP 135/79; PULSE 67; RESP 20; TEMP 98.1; O2SAT 95
[2016-12-15] MEDS ORDERED: REGADENOSON INJ 0.4 MG/5 ML SYR IV ONE (11:00)
--- NOTE | 2016-12-15 12:00 | RADRPT ---
EXAM DATE/TIME: 12/15/2016 10:49 [facility] COMPARISON: No previous studies available for comparison. INDICATIONS : Susbternal chest pain. Angina. DOSE: 25.4 mCi Tc99m Myoview at stress. 8.5 mCi Tc99m Myoview at rest. 0.4 mg Lexiscan STRESS SYMPTOMS: None noted. EJECTION FRACTION: 34% MEDICAL HISTORY : Hypertension. Hypothyroidism. Seizures. Intracranial hemorrhage. SURGICAL HISTORY : Tonsillectomy. Appendectomy. Hysterectomy. Cholecystectomy and craniotomy. ENCOUNTER: Initial ACUITY: 2 days PAIN SCALE: 4/10 LOCATION: Substernal chest TECHNIQUE: The patient underwent pharmacologic stress with infusion of prescribed dose. Continuous ECG tracing was monitored during stress. Gated SPECT imaging was performed after stress and conventional SPECT i maging was performed at rest. The examination was performed on a SPECT/CT scanner, both attenuation and non-corrected datasets were reviewed. FINDINGS: DISTRIBUTION: The maximum perfused segment at stress is in the anterior wall. PERFUSION STUDY: The pattern of perfusion at stress shows fixed diminished perfusion to portions of the apex. No rever sibility to suggest ischemia. GATED STUDY: Diffuse hypokinesis and akinetic segment in the inferoseptal region. CONCLUSION: 1. Apical thinning versus old apical infarct. No scintigraphic findings of ischemia. 2. Diffuse hypokinesis and akinetic inferoseptal segment. Reduced ejection fraction at 34%. RISK CATEGORY: High (>3% Annual Mortality Rate) Ethan Ng MD on December 15, 2016 at 11:55 Board Certified Radiologist. This report was verified electronically.
--- NOTE | 2016-12-15 12:47 | HHI.DS ---
Discharge Summary Admission Date Dec 14, 2016 at 15:14 Discharge Date: Dec 15, 2016 Admitting Diagnosis Chest pain (1) Chest pain ICD Code: R07.9 - Chest pain, unspecified Status: Acute Procedures Nuclear medicine stress test Brief History - From Admission Mrs. Barnes is a 70-year-old female. She is present today in the ER secondary to chest pain which has been present for 2 days off and on. Mostly chest pain occurs at night. It to tight sensation to her bilateral upper chest. She also feels some pains with moving. She does not have positive tender points to suggest costochondritis. His pains were preceded by a transient sinusitis. She has smoked in the past up to 3-1/2 packs per day but quit approximately 35 years ago. No alcohol abuse. No drug abuse. Chronic hypertension and hypothyroidism are present at baseline. No complaints of nausea. CBC/BMP: 12/15/16 0800 12/15/16 0800 Significant Findings Laboratory Tests Test 12/14/16 13:00 12/14/16 21:05 12/15/16 03:00 12/15/16 08:00 Random Glucose 107 MG/DL (74-106) Potassium Level 3.2 MEQ/L (3.5-5.1) Estimat Glomerular Filtration Rate 76 ML/MIN (>89) Troponin I LESS THAN 0.02 NG/ML LESS THAN 0.02 NG/ML LESS THAN 0.02 NG/ML Albumin 3.2 GM/DL (3.4-5.0) Hospital Course Mrs. Mayo is a 70-year-old female. She was admitted secondary to transient episode of chest pain. Workup was performed including following cardiac enzymes and EKG and a stress test. No signs of acute AR on EKG cardiac enzymes. Stress test shows no reversible perfusion defect, so no evidence of ischemic disease. However, fixed defects were noted. There was a global hypokinesis with an estimated ejection fraction of 34%. She also had an area of akinesis at an inferior septal distribution. Patient reports she's been chest pain-free now and wishes to discharge to home. I have offered cardiology consultation as an inpatient as well as further workup for possible CHF. She states that she follows with Dr. Neff as an outpatient and would like further workup with her outpatient frame operator. Given her findings suggest no acute disease or risk for acute AR, but rather chronic findings she is medically cleared for discharge with outpatient cardiology follow-up. She has no symptoms of congestive heart failure, but congestive heart failure symptoms are reviewed with the patient and she is asked to return to the hospital for any signs or symptoms of congestive heart failure. I have also recommended an echocardiogram and she declines this option as an inpatient, so recommended to be done as an outpatient. She is not a candidate for aspirin given history of spontaneous intracranial hemorrhage. Pt Condition on Discharge: Stable Discharge Disposition: Discharge Home Discharge Time: <= 30 minutes Discharge Instructions DIET: Follow Instructions for: Heart Healthy Diet Activities you can perform: Regular-No Restrictions Follow up Referrals: Cardiology - 2 Weeks with Aishwarya PCP Follow-up - 2 Weeks Continued Medications: Amlodipine (Amlodipine) 2.5 Mg Tab 2.5 MG PO DAILY for Blood Pressure Management, #30 TAB 0 Refills Levothyroxine (Levothyroxine) 125 Mcg Tab 137 MCG PO DAILY for Thyroid, #30 TAB 0 Refills Meclizine (Meclizine) 25 Mg Tab 25 MG PO DIRECTED PRN for VERTIGO, TAB 0 Refills Multiple Vitamin (Multiple Vitamin) 1 Tab 1 TAB PO DAILY for Nutritional Supplement, TAB 0 Refills Nortriptyline Liq (Nortriptyline Liq) 10 mg/5 ml Soln 25 MG PO HS for Depression Control, ML 0 Refills Omeprazole (Omeprazole) 20 Mg Tab 20 MG PO DAILY PRN for HEARTBURN, #30 TAB 0 Refills Valacyclovir (Valacyclovir) 500 Mg Tab 500 MG PO DAILY for Mgmt Viral Infection, #30 TAB 0 Refills Bryce Valdovinos MD Dec 15, 2016 12:47
--- NOTE | 2016-12-15 14:34 | EKG ---
Date Performed: 12/14/2016 Time Performed: 12:57:14 PTAGE: 71 years EKG: Sinus rhythm WITH SINUS ARRHYTHMIA LEFT BUNDLE BRANCH BLOCK ABNORMAL ECG Compared to prior tracing no significant change PREVIOUS TRACING DOCTOR: Raad Charles Interpretating Date/Time 12/15/2016 14:31:49
--- NOTE | 2016-12-16 13:04 | EKG ---
Date Performed: 12/15/2016 Time Performed: 09:10:57 PTAGE: 71 years EKG: Sinus rhythm WITH SINUS ARRHYTHMIA LEFT BUNDLE BRANCH BLOCK ABNORMAL ECG PREVIOUS TRACING : 12/14/2016 12.57 DOCTOR: Jony Bonilla Interpretating Date/Time 12/16/2016 12:54:21
--- NOTE | 2016-12-27 12:09 | TR ---
Date Performed: 12/15/2016 Time Performed: 11:08:18 DOCTOR: Cedrick Rod DRUG LIST: CLINICAL HISTORY: CHEST PAIN REASON FOR TEST: Chest pain REASON FOR ENDING: OBSERVATION: CONCLUSION: Lexiscan stress test was performed under standard four minute protocol. Radionuclid e was injected one minute prior to ending the test.Left bundle branch block was present throughout te sting. Nuclear imaging and interpretation are pending. COMMENTS:
== END 2016-12-15 14:06 | disposition home or self-care (01) ==
LOC: PHED 12:52 → PHEDA 15:14 → PH5A 18:30
PROVIDERS: ADMIT Hospitalist; ATTEND Hospitalist
DX: R07.9 Chest pain, unspecified (principal); I10 Essential (primary) hypertension; R94.31 Abnormal electrocardiogram [ECG] [EKG]; E03.9 Hypothyroidism, unspecified; K21.9 Gastro-esophageal reflux disease without esophagitis; Z86.73 Personal history of transient ischemic attack (TIA), and cerebral infarction without residual deficits; Z87.891 Personal history of nicotine dependence
CPT/HCPCS: 71010; 78452; 80048; 80053; 82550; 83735; 84484; 85025; 85610; 85730; 93005; 93017; 99285; A9502; G0378; J2785